=== PATIENT | female | born 1990 ===

== ENCOUNTER 2022-09-15 21:40 | Inpatient (IN) | payer OTHER ==
[2022-09-15] MEDS ORDERED: LACTATED RINGERS SOLUTION 1,000 ML IV ONE (23:00)
[2022-09-15 23:22] VITALS: BMI 32.2
[2022-09-16 00:28] LABS: BASO % 0.2 % (0-2.0); EOS % 0.6 % (0-4.5); HEMATOCRIT 35.5 % (32.4-45.2); HEMOGLOBIN 11.8 GM/dL (10.7-15.3); LYMPH % 14.3 % (8-40); MCHC 33.2 g/dl (32.0-36.0); MEAN CELL VOLUME 93.3 fl (80-96); MONO % 4.7 % (3.8-10.2); NEUT % 80.2 % (42.8-82.8); PLATELET COUNT 154 10^3/uL (134-434); RBC 3.81 M/mm3 (3.60-5.2); RDW 12.7 % (11.6-15.6)
[2022-09-16] MEDS ORDERED: FENTANYL/BUPIVACAINE/NS/PF - PCEA - 50 ML DISP.SYRIN EP ONE (00:33)
[2022-09-16 00:45] LABS: ACTIVATED PTT 32.2 SECONDS (25.2-36.5)
[2022-09-16 00:47] LABS: CALCIUM 8.6 mg/dL (8.5-10.1)
[2022-09-16 00:51] LABS: CREATININE 0.6 mg/dL (0.55-1.3)
[2022-09-16] MEDS: FENTANYL/BUPIVACAINE/NS/PF - PCEA - 50 ML DISP.SYRIN EP SCH (01:05)
[2022-09-16 01:10] LABS: INR 0.98 (0.83-1.09); PROTHROMBIN TIME (PATIENT) 11.3 SEC (9.7-13.0)
[2022-09-16] MEDS ORDERED: NALOXONE HCL 0.4 MG/ML VIAL IVPUSH PRN (01:18)
[2022-09-16] MEDS ORDERED: FENTANYL/BUPIVACAINE/NS/PF - PCEA - 50 ML DISP.SYRIN EP SCH (01:30)
[2022-09-16] MEDS ORDERED: OXYTOCIN 20 UNITS in 0.9% NS 20 UNIT/1,000 ML INFUS.BAG IV ONE (01:58)
[2022-09-16] MEDS ORDERED: ACETAMINOPHEN 325 MG TABLET (FP) PO PRN (02:42)
[2022-09-16] MEDS ORDERED: BENZOCAINE 20% 57 GM BOTTLE TP PRN (02:42)
[2022-09-16] MEDS ORDERED: WITCH HAZEL 50% (TUCKS) 40 PAD/JAR PAD TP PRN (02:42)
[2022-09-16] MEDS ORDERED: IBUPROFEN 600 MG TABLET (FP) PO PRN (02:42)
[2022-09-16] MEDS ORDERED: METHYLERGONOVINE MALEATE 0.2 MG/1 ML AMP IM PRN (02:42)
[2022-09-16] MEDS ORDERED: oxyCODONE HCL 5 MG TABLET PO PRN (02:42)
[2022-09-16] MEDS ORDERED: BENZOCAINE 28 GM HEMORRHOIDAL OINTMENT TP PRN (02:42)
[2022-09-16] MEDS ORDERED: BISACODYL 10 MG SUPP.RECT RC PRN (02:42)
[2022-09-16] MEDS ORDERED: OXYTOCIN 20 UNITS in 0.9% NS 20 UNIT/1,000 ML INFUS.BAG IV SCH (02:45)
[2022-09-16 03:10] LABS: CORD HCO3 25.6 mmHg (20-29); CORD PCO2 75.7 mmHg (30-78); CORD pH 7.147 (7.14-7.44)
[2022-09-16 03:13] LABS: CORD BASE EXCESS -5.4 mmol/L (0-2); CORD HCO3 24.6 mmHg (20-29); CORD PCO2 66.3 mmHg (30-78); CORD pH 7.188 (7.14-7.44)
[2022-09-16] MEDS: FERROUS SO4 325 MG TABLET (FP) PO SCH ×3 (08:32→18:09)
[2022-09-16] MEDS: PRENATAL VITAMINS W/ FOLIC ACID TABLET (FP) PO SCH (10:04)
[2022-09-17] MEDS: FENTANYL/BUPIVACAINE/NS/PF - PCEA - 50 ML DISP.SYRIN EP SCH (08:01)
[2022-09-17] MEDS: FERROUS SO4 325 MG TABLET (FP) PO SCH ×3 (08:02→17:30)
[2022-09-17 08:18] VITALS: BP 128/74; PULSE 93; RESP 16; TEMP 98
[2022-09-17 08:55] LABS: BASO % 0.2 % (0-2.0); EOS % 0.6 % (0-4.5); HEMATOCRIT 35.2 % (32.4-45.2); HEMOGLOBIN 11.7 GM/dL (10.7-15.3); MCH 31.4 pg (25.7-33.7); MCHC 33.4 g/dl (32.0-36.0); MEAN CELL VOLUME 94.1 fl (80-96); MEAN PLT VOLUME 11.1 fl (7.5-11.1); MONO % 4.5 % (3.8-10.2); NEUT % 76.7 % (42.8-82.8); PLATELET COUNT 139 10^3/uL (134-434); RBC 3.74 M/mm3 (3.60-5.2); RDW 12.8 % (11.6-15.6); WHITE BLOOD COUNT 9.7 K/mm3 (4.0-10.0)
[2022-09-17] MEDS: PRENATAL VITAMINS W/ FOLIC ACID TABLET (FP) PO SCH (09:13)
[2022-09-17] MEDS ORDERED: SENNOSIDES/DOCUSATE COMBO (SENNA PLUS) TABLET (UD) PO PRN (22:00)
== END 2022-09-17 19:05 | disposition home or self-care (01) | DRG 560 ==
LOC: JLDR 21:40 → J3W 09-16 05:04
PROVIDERS: ADMIT Obstetrics & Gynecology; ATTEND Obstetrics & Gynecology
PROC: 10E0XZZ Delivery of Products of Conception, External Approach (ICD-10-PCS; principal; 2022-09-16)
DX: O42.02 Full-term premature rupture of membranes, onset of labor within 24 hours of rupture (principal); Z3A.37 37 weeks gestation of pregnancy; Z37.0 Single live birth
CPT/HCPCS: 36415; 36600; 59409; 80048; 82803; 85025; 85610; 85730; 86780; 86850; 86900; 86901; C9803-CS; U0003; U0005